=== PATIENT | male | born 1955 | race Caucasian/White ===

== ENCOUNTER 2017-07-31 12:11 | Emergency (ER) | payer MEDICARE, MEDICAID ==
[~2017-07-31] VITALS: Ht 167.6 cm; Wt 80.0 kg
[~2017-07-31 12:11] MED LIST: DSS100 PO; LISI-661 PO; METF500T4 PO; OLAN10TA3 PO; OMEP20 PO; RISP3TAB44 PO
[2017-07-31] MEDS ORDERED: ASPI-556 PO (12:21)
[2017-07-31] MEDS ORDERED: FERR-89 PO (12:21)
[2017-07-31] MEDS ORDERED: ESCI10TA PO (12:21)
[2017-07-31] MEDS ORDERED: ALEN70TA48 PO (12:21)
[2017-07-31] MEDS ORDERED: PALI234D IM (12:21)
[2017-07-31] MEDS ORDERED: OXCA300T PO (12:21)
[2017-07-31] MEDS ORDERED: ATOR40TA28 PO (12:21)
[2017-07-31] MEDS ORDERED: METO50 PO (12:21)
[2017-07-31] MEDS ORDERED: OLAN5TAB2 PO (12:21)
[2017-07-31] MEDS ORDERED: HALO5 PO (12:21)
[2017-07-31] MEDS ORDERED: TRIH2TAB3 PO (12:21)
[2017-07-31 12:23] LABS: GLUCOSE,POINT OF CARE 111 MG/DL (70-110)
[2017-07-31 12:55] LABS: BASOPHILS # (AUTO) 0.04 K/uL (0.00-0.20); BASOPHILS % (AUTO) 0.4 % (0.0-2.0); EOSINOPHILS # (AUTO) 0.08 K/uL (0.00-0.70); EOSINOPHILS % (AUTO) 0.73 % (1.0-6.0); HEMATOCRIT 45.2 % (41-53); HEMOGLOBIN 15.1 g/dL (13.5-17.5); LYMPHOCYTES % (AUTO) 17.5 % (22.0-44.0); MEAN CORPUSCULAR HEMOGLOBIN 30.2 pg (26.0-34.0); MEAN CORPUSCULAR HGB CONC 33.4 G/dL (31.0-37.0); MEAN CORPUSCULAR VOLUME 90 fL (80-100); MONOCYTES # (AUTO) 0.7 K/uL (0.1-1.0); MONOCYTES % (AUTO) 6.5 % (2.0-9.0); NEUTROPHILS # (AUTO) 8.4 K/uL (1.8-7.7); NEUTROPHILS % (AUTO) 74.9 % (40.0-70.0); PLATELET COUNT (AUTO) 341 K/uL (150-450); RED BLOOD CELL COUNT(AUTO) 5.01 MIL/uL (4.50-5.90); RED CELL DISTRIBUTION WIDTH 16.1 % (11.5-14.5); WHITE BLOOD COUNT (AUTO) 11.2 K/uL (4.5-11.0)
[2017-07-31 13:04] LABS: ANION GAP 12 mmol/L (8-16); CALCIUM, TOTAL 9.8 mg/dL (8.8-10.5); CARBON DIOXIDE 25 mmol/L (22-29); CHLORIDE 104 mmol/L (98-107); CREATININE 1.04 mg/dL (0.60-1.30); GLOMERULAR FILTR. RATE CALC > 60 mL/min (>60); POTASSIUM 3.9 mmol/L (3.5-5.1); SODIUM SERUM 141 mmol/L (136-145); UREA NITROGEN, BLOOD 14 mg/dL (7-18)
[2017-07-31 13:09] LABS: ALANINE AMINOTRANSFERASE 11 U/L (12-78); ALBUMIN 4.1 g/dL (3.4-5.0); ASPARTATE AMINOTRANSFERASE 13 U/L (15-37); BILIRUBIN,TOTAL 0.5 mg/dL (0.1-1.0); TOTAL PROTEIN, SERUM 8.3 g/dL (6.4-8.2)
[2017-07-31 15:30] VITALS: BP 127/84
== END 2017-07-31 15:35 | disposition home or self-care (01) ==
LOC: EMS 12:12
DX: F20.0 Paranoid schizophrenia (principal); F32.9 Major depressive disorder, single episode, unspecified; E11.9 Type 2 diabetes mellitus without complications; I10 Essential (primary) hypertension; F17.200 Nicotine dependence, unspecified, uncomplicated; Z88.8 Allergy status to other drugs, medicaments and biological substances
CPT/HCPCS: 36415; 80053; 80307; 82962; 85025; 99284; 99406; G0480

== ENCOUNTER 2017-11-20 13:24 | Emergency (ER) | payer MEDICARE, MEDICAID ==
[~2017-11-20] VITALS: Ht 167.6 cm; Wt 80.0 kg
[~2017-11-20 13:24] MED LIST changes: +ALEN70TA48 PO; +ASPI-556 PO; +ATOR40TA28 PO; +ESCI10TA PO; +FERR-89 PO; +HALO5 PO; +METO50 PO; +OLAN5TAB2 PO; +OXCA300T PO; +PALI234D IM; +TRIH2TAB3 PO
[2017-11-20 13:36] LABS: GLUCOSE,POINT OF CARE 119 MG/DL (70-110)
[2017-11-20 13:45] LABS: APPEARANCE,URINE CLOUDY (CLEAR); GLUCOSE, URINE (UA) NEGATIVE (NEGATIVE); KETONES,URINE NEGATIVE (NEGATIVE); LEUKOCYTE ESTERASE ,URINE SMALL (NEGATIVE); OCCULT BLOOD,URINE LARGE (NEGATIVE); PH,URINE 5.5 (5.0-8.0); PROTEIN,URINE NEGATIVE (NEGATIVE)
[2017-11-20 13:54] LABS: ADD UA MICROSCOPIC YES; RBC,URINE 51-100 /HPF (0-2)
[2017-11-20 13:55] LABS: SQUAMOUS EPITHELIAL CELL,UR Few /LPF (None Seen)
[2017-11-20] MEDS ORDERED: IBUPROFEN 800 MG TABLET PO ONE (14:45)
[2017-11-20] MEDS ORDERED: CefTRIAXone SODIUM 1 GM/VIAL IM ONE (14:45)
[2017-11-20] MEDS ORDERED: AZITHROMYCIN 250 MG TABLET PO ONE (14:45)
[2017-11-20] MEDS ORDERED: LIDOCAINE HCL 1% 10 ML VIAL INJ ONE (15:00)
[2017-11-20 15:18] VITALS: BP 132/81
[2017-11-24 03:06] LABS: GC DNA N.A. AMPLIFY Negative (Negative)
== END 2017-11-20 15:24 | disposition home or self-care (01) ==
LOC: EMS 13:29
DX: N39.0 Urinary tract infection, site not specified (principal); A64 Unspecified sexually transmitted disease; I10 Essential (primary) hypertension; F20.9 Schizophrenia, unspecified; E11.9 Type 2 diabetes mellitus without complications; Z88.8 Allergy status to other drugs, medicaments and biological substances; Z79.82 Long term (current) use of aspirin; Z79.4 Long term (current) use of insulin; Z79.899 Other long term (current) drug therapy
CPT/HCPCS: 81001; 82962; 87086; 87491; 87591; 96372; 99284; J0696; J3490

== ENCOUNTER 2017-12-02 09:51 | Emergency (ER) | payer MEDICARE, MEDICAID ==
[~2017-12-02] VITALS: Ht 167.6 cm; Wt 79.5 kg
[2017-12-02 10:02] LABS: GLUCOSE,POINT OF CARE 111 MG/DL (70-110)
[2017-12-02 12:23] VITALS: BP 174/96
[2017-12-02 14:20] LABS: APPEARANCE,URINE CLEAR (CLEAR); BILIRUBIN,URINE NEGATIVE (NEGATIVE); GLUCOSE, URINE (UA) NEGATIVE (NEGATIVE); KETONES,URINE NEGATIVE (NEGATIVE); LEUKOCYTE ESTERASE ,URINE TRACE (NEGATIVE); NITRATE,URINE NEGATIVE (NEGATIVE); OCCULT BLOOD,URINE TRACE (NEGATIVE); PH,URINE 6.5 (5.0-8.0); PROTEIN,URINE NEGATIVE (NEGATIVE); UROBILINOGEN,URINE 0.2 mg/dL (<=1.0)
[2017-12-02 14:28] LABS: BACTERIA,URINE None Seen /HPF (None Seen); RBC,URINE 0-2 /HPF (0-2); WBC,URINE 0-2 /HPF (0-5)
== END 2017-12-02 13:24 | disposition home or self-care (01) ==
LOC: EMS 09:53
DX: R30.0 Dysuria (principal); I10 Essential (primary) hypertension; E11.9 Type 2 diabetes mellitus without complications; Z88.8 Allergy status to other drugs, medicaments and biological substances
CPT/HCPCS: 82962; 99283

== ENCOUNTER 2018-02-01 10:10 | Inpatient (IN) | payer MEDICARE, MEDICAID ==
[~2018-02-01] VITALS: Ht 167.6 cm; Wt 75.7 kg
[2018-02-01 10:36] LABS: APPEARANCE,URINE CLEAR (CLEAR); BILIRUBIN,URINE NEGATIVE (NEGATIVE); GLUCOSE, URINE (UA) NEGATIVE (NEGATIVE); KETONES,URINE NEGATIVE (NEGATIVE); LEUKOCYTE ESTERASE ,URINE NEGATIVE (NEGATIVE); NITRATE,URINE NEGATIVE (NEGATIVE); PROTEIN,URINE NEGATIVE (NEGATIVE); UROBILINOGEN,URINE 0.2 mg/dL (<=1.0)
[2018-02-01 10:41] LABS: AMPHET/METH SCREEN,URINE NEGATIVE (NEGATIVE); BARBITURATE SCREEN, URINE NEGATIVE (NEGATIVE); BENZODIAZEPINES SCREEN,URINE NEGATIVE (NEGATIVE); CANNABINOID SCREEN,URINE NEGATIVE (NEGATIVE); COCAINE SCREEN,URINE NEGATIVE (NEGATIVE); METHADONE SCREEN, URINE NEGATIVE (NEGATIVE); OPIATE SCREEN,URINE NEGATIVE (NEGATIVE)
[2018-02-01 10:47] LABS: PHENCYCLIDINE SCREEN,URINE NEGATIVE (NEGATIVE)
[2018-02-01 11:01] LABS: BASOPHILS % (AUTO) 0.9 % (0.0-2.0); EOSINOPHILS % (AUTO) 3.6 % (1.0-6.0); HEMATOCRIT 44.4 % (41-53); HEMOGLOBIN 14.8 g/dL (13.5-17.5); LYMPHOCYTES # (AUTO) 2.9 K/uL (1.0-4.8); LYMPHOCYTES % (AUTO) 21.9 % (22.0-44.0); MEAN CORPUSCULAR HEMOGLOBIN 29.4 pg (26.0-34.0); MEAN CORPUSCULAR HGB CONC 33.4 G/dL (31.0-37.0); MEAN CORPUSCULAR VOLUME 88 fL (80-100); MONOCYTES # (AUTO) 1.1 K/uL (0.1-1.0); NEUTROPHILS # (AUTO) 8.7 K/uL (1.8-7.7); NEUTROPHILS % (AUTO) 65.6 % (40.0-70.0); PLATELET COUNT (AUTO) 351 K/uL (150-450); RED BLOOD CELL COUNT(AUTO) 5.04 MIL/uL (4.50-5.90); RED CELL DISTRIBUTION WIDTH 16.3 % (11.5-14.5)
[2018-02-01 11:02] LABS: OCCULT BLOOD,URINE NEGATIVE (NEGATIVE)
[2018-02-01] MEDS ORDERED: LORazepam 2 MG/ML VIAL IM ONE (11:30)
[2018-02-01] MEDS ORDERED: DiphenhydrAMINE HCL 50 MG/ML VIAL IM ONE (11:30)
[2018-02-01] MEDS ORDERED: HALOPERIDOL LACTATE 5 MG/ML VIAL IM ONE (11:30)
[2018-02-01 11:43] LABS: ANION GAP 13 mmol/L (8-16); CALCIUM, TOTAL 9.3 mg/dL (8.8-10.5); CARBON DIOXIDE 23 mmol/L (22-29); CHLORIDE 102 mmol/L (98-107); CREATININE 0.91 mg/dL (0.60-1.30); GLOMERULAR FILTR. RATE CALC > 60 mL/min (>60); GLUCOSE,RANDOM 108 mg/dL (70-110); POTASSIUM 4.1 mmol/L (3.5-5.1); SODIUM SERUM 138 mmol/L (136-145); UREA NITROGEN, BLOOD 12 mg/dL (7-18)
[2018-02-01] MEDS ORDERED: HALOPERIDOL 5 MG TABLET PO PRN (11:45)
[2018-02-01 11:57] LABS: ALANINE AMINOTRANSFERASE 20 U/L (12-78); ALBUMIN 3.9 g/dL (3.4-5.0); ALKALINE PHOSPHATASE 86 U/L (46-116); ASPARTATE AMINOTRANSFERASE 20 U/L (15-37); BILIRUBIN,TOTAL 0.6 mg/dL (0.1-1.0); THYROID STIMULATING HORMONE 1.18 uIU/mL (0.36-3.74); TOTAL PROTEIN, SERUM 8.3 g/dL (6.4-8.2)
[2018-02-01] MEDS: OXcarbazepine 300 MG TABLET PO SCH (17:00)
[2018-02-01] MEDS: RisperiDONE 3 MG TABLET PO SCH (17:00)
[2018-02-01] MEDS: HALOPERIDOL 5 MG TABLET PO SCH (17:00)
[2018-02-01] MEDS: TRIHEXYPHENIDYL HCL 2 MG TABLET PO SCH (17:00)
[2018-02-01 17:44] VITALS: BP 113/67
[2018-02-01] MEDS ORDERED: INFLUENZA VIRUS VACCINE QVS 2017-18 (3YR+)/PF 60 MCG/0.5 ML SYRINGE IM ONE (18:00)
[2018-02-01] MEDS: OLANZapine 10 MG RAPDIS TABLET PO SCH (21:00)
[2018-02-02 06:52] VITALS: BP 111/63
[2018-02-02] MEDS: TRIHEXYPHENIDYL HCL 2 MG TABLET PO SCH ×2 (09:00→16:10)
[2018-02-02] MEDS: HALOPERIDOL 5 MG TABLET PO SCH ×3 (09:00→16:10)
[2018-02-02 09:10] VITALS: BP 118/62
[2018-02-02] MEDS: OXcarbazepine 300 MG TABLET PO SCH ×2 (09:23→16:10)
[2018-02-02] MEDS: ESCITALOPRAM OXALATE 10 MG TABLET PO SCH (09:23)
[2018-02-02] MEDS: RisperiDONE 3 MG TABLET PO SCH ×2 (09:23→16:10)
[2018-02-02] MEDS ORDERED: PETROLATUM,WHITE 71 GM JELLY TP PRN (10:30)
[2018-02-02] MEDS ORDERED: MAG HYDROX/AL HYDROX/SIMETH ES 30 ML SUSPENSION UDCUP PO PRN (10:30)
[2018-02-02] MEDS ORDERED: BACITRACIN 28.4 GM OINTMENT TP PRN (10:30)
[2018-02-02] MEDS ORDERED: ONDANSETRON HCL 4 MG TABLET PO PRN (10:30)
[2018-02-02] MEDS ORDERED: BENZOCAINE/MENTHOL LOZENGE MM PRN (10:30)
[2018-02-02] MEDS ORDERED: ALBUTEROL SULFATE HFA 90 MCG/PUFF 8 GM INHALER IH PRN (10:30)
[2018-02-02] MEDS ORDERED: IBUPROFEN 600 MG TABLET PO PRN (10:30)
[2018-02-02] MEDS ORDERED: MAGNESIUM HYDROXIDE SUSPENSION 30 ML UDCUP PO PRN (10:30)
[2018-02-02] MEDS ORDERED: CloNIDine HCL 0.1 MG TABLET PO PRN (10:30)
[2018-02-02] MEDS ORDERED: LOPERAMIDE HCL 2 MG CAPSULE PO PRN (10:30)
[2018-02-02] MEDS: LORazepam 2 MG TABLET PO PRN (16:11)
[2018-02-02 16:35] VITALS: BP 133/65
[2018-02-02] MEDS: ATORVASTATIN CALCIUM 40 MG TABLET PO SCH (20:06)
[2018-02-02] MEDS: ZOLPIDEM TARTRATE 10 MG TABLET PO PRN (20:07)
[2018-02-02] MEDS: OLANZapine 10 MG RAPDIS TABLET PO SCH (20:07)
[2018-02-03 06:52] VITALS: BP 126/66
[2018-02-03 08:15] VITALS: BP 108/56
[2018-02-03 08:35] LABS: BASOPHILS % (AUTO) 0.3 % (0.0-2.0); EOSINOPHILS % (AUTO) 3.4 % (1.0-6.0); HEMOGLOBIN 13.8 g/dL (13.5-17.5); LYMPHOCYTES # (AUTO) 3.3 K/uL (1.0-4.8); LYMPHOCYTES % (AUTO) 23.7 % (22.0-44.0); MEAN CORPUSCULAR HGB CONC 32.9 G/dL (31.0-37.0); MEAN CORPUSCULAR VOLUME 88 fL (80-100); MONOCYTES # (AUTO) 1.1 K/uL (0.1-1.0); MONOCYTES % (AUTO) 8.1 % (2.0-9.0); NEUTROPHILS % (AUTO) 64.5 % (40.0-70.0); PLATELET COUNT (AUTO) 350 K/uL (150-450); RED BLOOD CELL COUNT(AUTO) 4.76 MIL/uL (4.50-5.90); RED CELL DISTRIBUTION WIDTH 16.2 % (11.5-14.5)
[2018-02-03] MEDS: TRIHEXYPHENIDYL HCL 2 MG TABLET PO SCH ×2 (09:00→16:34)
[2018-02-03] MEDS: HALOPERIDOL 5 MG TABLET PO SCH ×3 (09:00→16:34)
[2018-02-03] MEDS: ASPIRIN 81 MG EC TABLET PO SCH (09:11)
[2018-02-03] MEDS: RisperiDONE 3 MG TABLET PO SCH ×2 (09:11→16:34)
[2018-02-03] MEDS: DOCUSATE SODIUM 100 MG CAPSULE PO SCH (09:11)
[2018-02-03] MEDS: LISINOPRIL 10 MG TABLET PO SCH (09:12)
[2018-02-03] MEDS: OMEPRAZOLE 20 MG CAPSULE PO SCH (09:12)
[2018-02-03] MEDS: ESCITALOPRAM OXALATE 10 MG TABLET PO SCH (09:12)
[2018-02-03] MEDS: OXcarbazepine 300 MG TABLET PO SCH ×2 (09:12→16:34)
[2018-02-03] MEDS ORDERED: HALOPERIDOL LACTATE 5 MG/ML VIAL IM PRN (15:00)
[2018-02-03 16:00] VITALS: BP 113/89
[2018-02-03] MEDS: OLANZapine 10 MG RAPDIS TABLET PO SCH (20:46)
[2018-02-03] MEDS: ATORVASTATIN CALCIUM 40 MG TABLET PO SCH (20:46)
[2018-02-03] MEDS: ZOLPIDEM TARTRATE 10 MG TABLET PO PRN (20:47)
[2018-02-03] MEDS ORDERED: GLUCAGON,HUMAN RECOMBINANT 1 MG VIAL IM PRN (21:45)
[2018-02-04] MEDS: MetFORMIN HCL 500 MG TABLET PO SCH ×2 (06:29→16:27)
[2018-02-04 06:44] LABS: GLUCOMETER DEV NAME(LOC) BV3N5; GLUCOSE,POINT OF CARE 99 MG/DL (70-110)
[2018-02-04 07:06] VITALS: BP 112/63
[2018-02-04 08:08] LABS: BASOPHILS % (AUTO) 0.4 % (0.0-2.0); HEMATOCRIT 41.4 % (41-53); HEMOGLOBIN 13.7 g/dL (13.5-17.5); LYMPHOCYTES # (AUTO) 3.5 K/uL (1.0-4.8); LYMPHOCYTES % (AUTO) 31.3 % (22.0-44.0); MEAN CORPUSCULAR HGB CONC 33.1 G/dL (31.0-37.0); MEAN CORPUSCULAR VOLUME 88 fL (80-100); MONOCYTES # (AUTO) 0.9 K/uL (0.1-1.0); MONOCYTES % (AUTO) 8.2 % (2.0-9.0); NEUTROPHILS # (AUTO) 6.2 K/uL (1.8-7.7); NEUTROPHILS % (AUTO) 56.1 % (40.0-70.0); PLATELET COUNT (AUTO) 361 K/uL (150-450); RED BLOOD CELL COUNT(AUTO) 4.71 MIL/uL (4.50-5.90); RED CELL DISTRIBUTION WIDTH 16.1 % (11.5-14.5)
[2018-02-04 08:25] VITALS: BP 128/68
[2018-02-04 08:29] LABS: ANION GAP 11 mmol/L (8-16); CALCIUM, TOTAL 9.4 mg/dL (8.8-10.5); CARBON DIOXIDE 26 mmol/L (22-29); CHLORIDE 103 mmol/L (98-107); CREATININE 1.02 mg/dL (0.60-1.30); GLOMERULAR FILTR. RATE CALC > 60 mL/min (>60); GLUCOSE,RANDOM 104 mg/dL (70-110); PHOSPHORUS 3.7 mg/dL (2.5-4.9); POTASSIUM 4.8 mmol/L (3.5-5.1); SODIUM SERUM 140 mmol/L (136-145); UREA NITROGEN, BLOOD 20 mg/dL (7-18)
[2018-02-04] MEDS: ASPIRIN 81 MG EC TABLET PO SCH (09:08)
[2018-02-04] MEDS: LISINOPRIL 10 MG TABLET PO SCH (09:08)
[2018-02-04] MEDS: OMEPRAZOLE 20 MG CAPSULE PO SCH (09:08)
[2018-02-04] MEDS: TRIHEXYPHENIDYL HCL 2 MG TABLET PO SCH ×2 (09:08→16:27)
[2018-02-04] MEDS: HALOPERIDOL 5 MG TABLET PO SCH ×3 (09:08→16:27)
[2018-02-04] MEDS: ESCITALOPRAM OXALATE 10 MG TABLET PO SCH (09:08)
[2018-02-04] MEDS: RisperiDONE 3 MG TABLET PO SCH ×2 (09:08→16:27)
[2018-02-04] MEDS: DOCUSATE SODIUM 100 MG CAPSULE PO SCH (09:08)
[2018-02-04] MEDS: OXcarbazepine 300 MG TABLET PO SCH ×2 (09:08→16:27)
[2018-02-04 09:13] LABS: HIV 1-2 SCREEN 4TH GEN W/RFLX Non Reactive (Non Reactive)
[2018-02-04 16:11] VITALS: BP 133/65
[2018-02-04 16:21] LABS: GLUCOMETER DEV NAME(LOC) BV3N5; GLUCOSE,POINT OF CARE 115 MG/DL (70-110)
[2018-02-04] MEDS: LORazepam 2 MG TABLET PO PRN (16:27)
[2018-02-04 17:18] LABS: GLUCOMETER DEV NAME(LOC) BV3N5; GLUCOSE,POINT OF CARE 106 MG/DL (70-110)
[2018-02-04] MEDS: ZOLPIDEM TARTRATE 10 MG TABLET PO PRN (20:51)
[2018-02-04] MEDS: OLANZapine 10 MG RAPDIS TABLET PO SCH (20:51)
[2018-02-04] MEDS: ATORVASTATIN CALCIUM 40 MG TABLET PO SCH (20:51)
[2018-02-05 01:02] VITALS: BP 127/71
[2018-02-05] MEDS: MetFORMIN HCL 500 MG TABLET PO SCH ×2 (06:46→16:40)
[2018-02-05 06:47] LABS: GLUCOMETER DEV NAME(LOC) BV3N5; GLUCOSE,POINT OF CARE 110 MG/DL (70-110)
[2018-02-05 08:00] VITALS: BP 108/64
[2018-02-05] MEDS: TRIHEXYPHENIDYL HCL 2 MG TABLET PO SCH ×2 (08:51→16:40)
[2018-02-05] MEDS: RisperiDONE 3 MG TABLET PO SCH ×2 (08:51→16:40)
[2018-02-05] MEDS: OXcarbazepine 300 MG TABLET PO SCH ×2 (08:51→16:40)
[2018-02-05] MEDS: LISINOPRIL 10 MG TABLET PO SCH (08:51)
[2018-02-05] MEDS: ESCITALOPRAM OXALATE 10 MG TABLET PO SCH (08:52)
[2018-02-05] MEDS: OMEPRAZOLE 20 MG CAPSULE PO SCH (08:52)
[2018-02-05] MEDS: ASPIRIN 81 MG EC TABLET PO SCH (08:52)
[2018-02-05] MEDS: DOCUSATE SODIUM 100 MG CAPSULE PO SCH (08:52)
[2018-02-05] MEDS: HALOPERIDOL 5 MG TABLET PO SCH ×3 (08:52→16:41)
[2018-02-05] MEDS: CHOLECALCIFEROL (VIT D3) 1,000 UNITS TABLET PO SCH (10:21)
[2018-02-05 11:32] LABS: GLUCOMETER DEV NAME(LOC) BV3N5; GLUCOSE,POINT OF CARE 150 MG/DL (70-110)
[2018-02-05 16:00] VITALS: BP 134/73
[2018-02-05] MEDS: LORazepam 2 MG TABLET PO PRN (16:41)
[2018-02-05 16:47] LABS: GLUCOMETER DEV NAME(LOC) BV3N5; GLUCOSE,POINT OF CARE 126 MG/DL (70-110)
[2018-02-05] MEDS: ATORVASTATIN CALCIUM 40 MG TABLET PO SCH (20:43)
[2018-02-05] MEDS: OLANZapine 10 MG RAPDIS TABLET PO SCH (20:43)
[2018-02-05] MEDS: ZOLPIDEM TARTRATE 10 MG TABLET PO PRN (20:43)
[2018-02-06] MEDS: INSULIN ASPART 100 UNITS/ML SQ PRN ×2 (06:26→16:39)
[2018-02-06] MEDS: MetFORMIN HCL 500 MG TABLET PO SCH ×2 (06:27→16:38)
[2018-02-06 06:33] LABS: GLUCOMETER DEV NAME(LOC) BV3N5; GLUCOSE,POINT OF CARE 168 MG/DL (70-110)
[2018-02-06 06:45] VITALS: BP 128/70
[2018-02-06 08:12] VITALS: BP 131/80
[2018-02-06] MEDS: LISINOPRIL 10 MG TABLET PO SCH (10:05)
[2018-02-06] MEDS: HALOPERIDOL 5 MG TABLET PO SCH ×3 (10:05→16:39)
[2018-02-06] MEDS: DOCUSATE SODIUM 100 MG CAPSULE PO SCH (10:05)
[2018-02-06] MEDS: OXcarbazepine 300 MG TABLET PO SCH ×2 (10:05→16:38)
[2018-02-06] MEDS: ASPIRIN 81 MG EC TABLET PO SCH (10:05)
[2018-02-06] MEDS: OMEPRAZOLE 20 MG CAPSULE PO SCH (10:05)
[2018-02-06] MEDS: ESCITALOPRAM OXALATE 10 MG TABLET PO SCH (10:05)
[2018-02-06] MEDS: RisperiDONE 3 MG TABLET PO SCH ×2 (10:05→16:39)
[2018-02-06] MEDS: CHOLECALCIFEROL (VIT D3) 1,000 UNITS TABLET PO SCH (10:14)
[2018-02-06] MEDS: TRIHEXYPHENIDYL HCL 2 MG TABLET PO SCH ×2 (10:14→16:38)
[2018-02-06 11:48] LABS: GLUCOMETER DEV NAME(LOC) BV3N5; GLUCOSE,POINT OF CARE 95 MG/DL (70-110)
[2018-02-06 16:00] VITALS: BP 138/75
[2018-02-06] MEDS: LORazepam 2 MG TABLET PO PRN ×2 (16:39→20:44)
[2018-02-06 16:57] LABS: GLUCOMETER DEV NAME(LOC) BV3N5; GLUCOSE,POINT OF CARE 191 MG/DL (70-110)
[2018-02-06] MEDS ORDERED: METF850T2 PO (17:43)
[2018-02-06] MEDS: ATORVASTATIN CALCIUM 40 MG TABLET PO SCH (20:44)
[2018-02-06] MEDS: HALOPERIDOL 10 MG TABLET PO SCH (20:44)
[2018-02-06] MEDS: ZOLPIDEM TARTRATE 10 MG TABLET PO PRN (20:44)
[2018-02-07 06:23] LABS: GLUCOMETER DEV NAME(LOC) BV3N5; GLUCOSE,POINT OF CARE 122 MG/DL (70-110)
[2018-02-07] MEDS: MetFORMIN HCL 500 MG TABLET PO SCH ×2 (06:31→16:28)
[2018-02-07 07:04] VITALS: BP 124/75
[2018-02-07 08:11] VITALS: BP 110/68
[2018-02-07 09:48] VITALS: BP 124/71
[2018-02-07] MEDS: TRIHEXYPHENIDYL HCL 2 MG TABLET PO SCH ×2 (09:52→16:28)
[2018-02-07] MEDS: CHOLECALCIFEROL (VIT D3) 1,000 UNITS TABLET PO SCH (09:52)
[2018-02-07] MEDS: OXcarbazepine 300 MG TABLET PO SCH ×2 (09:52→16:28)
[2018-02-07] MEDS: OMEPRAZOLE 20 MG CAPSULE PO SCH (09:52)
[2018-02-07] MEDS: ASPIRIN 81 MG EC TABLET PO SCH (09:52)
[2018-02-07] MEDS: LISINOPRIL 10 MG TABLET PO SCH (09:52)
[2018-02-07] MEDS: ESCITALOPRAM OXALATE 10 MG TABLET PO SCH (09:52)
[2018-02-07] MEDS: DOCUSATE SODIUM 100 MG CAPSULE PO SCH (09:53)
[2018-02-07 12:12] LABS: GLUCOMETER DEV NAME(LOC) BV3N5; GLUCOSE,POINT OF CARE 98 MG/DL (70-110)
[2018-02-07 16:25] VITALS: BP 107/67
[2018-02-07 16:33] LABS: GLUCOMETER DEV NAME(LOC) BV3N5; GLUCOSE,POINT OF CARE 93 MG/DL (70-110)
[2018-02-07 20:07] LABS: GLUCOMETER DEV NAME(LOC) BV3N5; GLUCOSE,POINT OF CARE 136 MG/DL (70-110)
[2018-02-07] MEDS: ZOLPIDEM TARTRATE 10 MG TABLET PO PRN (20:15)
[2018-02-07] MEDS: HALOPERIDOL 10 MG TABLET PO SCH (20:15)
[2018-02-07] MEDS: ATORVASTATIN CALCIUM 40 MG TABLET PO SCH (20:15)
[2018-02-08 06:38] VITALS: BP 109/65
[2018-02-08] MEDS: MetFORMIN HCL 500 MG TABLET PO SCH ×2 (06:48→16:36)
[2018-02-08 08:00] VITALS: BP 136/74
[2018-02-08] MEDS: CHOLECALCIFEROL (VIT D3) 1,000 UNITS TABLET PO SCH (09:00)
[2018-02-08] MEDS: ASPIRIN 81 MG EC TABLET PO SCH (09:00)
[2018-02-08] MEDS: LISINOPRIL 10 MG TABLET PO SCH (09:00)
[2018-02-08] MEDS: OXcarbazepine 300 MG TABLET PO SCH ×2 (09:00→16:36)
[2018-02-08] MEDS: ESCITALOPRAM OXALATE 10 MG TABLET PO SCH (09:00)
[2018-02-08] MEDS: OMEPRAZOLE 20 MG CAPSULE PO SCH (09:00)
[2018-02-08] MEDS: TRIHEXYPHENIDYL HCL 2 MG TABLET PO SCH ×2 (09:00→16:36)
[2018-02-08] MEDS: DOCUSATE SODIUM 100 MG CAPSULE PO SCH (09:00)
[2018-02-08 12:58] LABS: GLUCOMETER DEV NAME(LOC) BV3N5; GLUCOSE,POINT OF CARE 105 MG/DL (70-110)
[2018-02-08 12:58] LABS: GLUCOMETER DEV NAME(LOC) BV3N5; GLUCOSE,POINT OF CARE 146 MG/DL (70-110)
[2018-02-08] MEDS: INSULIN ASPART 100 UNITS/ML SQ PRN (14:28)
[2018-02-08 16:00] VITALS: BP 145/83
[2018-02-08] MEDS: LORazepam 2 MG TABLET PO PRN ×2 (16:36→20:37)
[2018-02-08 16:47] LABS: GLUCOMETER DEV NAME(LOC) BV3N5; GLUCOSE,POINT OF CARE 102 MG/DL (70-110)
[2018-02-08] MEDS: HALOPERIDOL 10 MG TABLET PO SCH (20:37)
[2018-02-08] MEDS: ZOLPIDEM TARTRATE 10 MG TABLET PO PRN (20:37)
[2018-02-08] MEDS: ATORVASTATIN CALCIUM 40 MG TABLET PO SCH (20:37)
[2018-02-09 05:36] VITALS: BP 132/81
[2018-02-09 05:43] VITALS: BP 147/84
[2018-02-09 05:43] LABS: GLUCOMETER DEV NAME(LOC) BV3N5; GLUCOSE,POINT OF CARE 110 MG/DL (70-110)
[2018-02-09] MEDS: ACETAMINOPHEN 325 MG TABLET PO PRN (05:45)
[2018-02-09] MEDS: MetFORMIN HCL 500 MG TABLET PO SCH ×2 (06:36→16:34)
[2018-02-09 08:12] VITALS: BP 138/84
[2018-02-09] MEDS: ESCITALOPRAM OXALATE 10 MG TABLET PO SCH (08:26)
[2018-02-09] MEDS: LISINOPRIL 10 MG TABLET PO SCH (08:26)
[2018-02-09] MEDS: OMEPRAZOLE 20 MG CAPSULE PO SCH (08:27)
[2018-02-09] MEDS: CHOLECALCIFEROL (VIT D3) 1,000 UNITS TABLET PO SCH (08:27)
[2018-02-09] MEDS: TRIHEXYPHENIDYL HCL 2 MG TABLET PO SCH ×2 (08:27→16:34)
[2018-02-09] MEDS: DOCUSATE SODIUM 100 MG CAPSULE PO SCH (08:27)
[2018-02-09] MEDS: ASPIRIN 81 MG EC TABLET PO SCH (08:27)
[2018-02-09] MEDS: OXcarbazepine 300 MG TABLET PO SCH ×2 (08:27→16:34)
[2018-02-09] MEDS: INSULIN ASPART 100 UNITS/ML SQ PRN (11:49)
[2018-02-09 11:52] LABS: GLUCOMETER DEV NAME(LOC) BV3N5; GLUCOSE,POINT OF CARE 187 MG/DL (70-110)
[2018-02-09 16:00] VITALS: BP 146/83
[2018-02-09] MEDS: LORazepam 2 MG TABLET PO PRN (16:34)
[2018-02-09 16:52] LABS: GLUCOMETER DEV NAME(LOC) BV3N5; GLUCOSE,POINT OF CARE 118 MG/DL (70-110)
[2018-02-09] MEDS: HALOPERIDOL 10 MG TABLET PO SCH (20:47)
[2018-02-09] MEDS: ATORVASTATIN CALCIUM 40 MG TABLET PO SCH (20:47)
[2018-02-09] MEDS: ZOLPIDEM TARTRATE 10 MG TABLET PO PRN (20:47)
[2018-02-09 20:52] LABS: GLUCOMETER DEV NAME(LOC) BV3N5; GLUCOSE,POINT OF CARE 107 MG/DL (70-110)
[2018-02-10] MEDS: MetFORMIN HCL 500 MG TABLET PO SCH ×2 (06:40→16:21)
[2018-02-10 06:48] LABS: GLUCOMETER DEV NAME(LOC) BV3N5; GLUCOSE,POINT OF CARE 98 MG/DL (70-110)
[2018-02-10 06:50] VITALS: BP 134/79
[2018-02-10 08:07] VITALS: BP 126/77
[2018-02-10] MEDS: CHOLECALCIFEROL (VIT D3) 1,000 UNITS TABLET PO SCH (08:19)
[2018-02-10] MEDS: DOCUSATE SODIUM 100 MG CAPSULE PO SCH (08:19)
[2018-02-10] MEDS: ESCITALOPRAM OXALATE 10 MG TABLET PO SCH (08:20)
[2018-02-10] MEDS: OXcarbazepine 300 MG TABLET PO SCH ×2 (08:20→16:21)
[2018-02-10] MEDS: OMEPRAZOLE 20 MG CAPSULE PO SCH (08:20)
[2018-02-10] MEDS: ASPIRIN 81 MG EC TABLET PO SCH (08:20)
[2018-02-10] MEDS: TRIHEXYPHENIDYL HCL 2 MG TABLET PO SCH ×2 (08:20→16:22)
[2018-02-10] MEDS: LISINOPRIL 10 MG TABLET PO SCH (08:20)
[2018-02-10 11:52] LABS: GLUCOMETER DEV NAME(LOC) BV3N5; GLUCOSE,POINT OF CARE 114 MG/DL (70-110)
[2018-02-10 16:00] VITALS: BP 148/67
[2018-02-10] MEDS: LORazepam 2 MG TABLET PO PRN (16:22)
[2018-02-10 16:57] LABS: GLUCOMETER DEV NAME(LOC) BV3N5; GLUCOSE,POINT OF CARE 92 MG/DL (70-110)
[2018-02-10] MEDS: HALOPERIDOL 10 MG TABLET PO SCH (20:45)
[2018-02-10] MEDS: ATORVASTATIN CALCIUM 40 MG TABLET PO SCH (20:45)
[2018-02-10 20:56] LABS: GLUCOMETER DEV NAME(LOC) BV3N5; GLUCOSE,POINT OF CARE 98 MG/DL (70-110)
[2018-02-10] MEDS ORDERED: PALIPERIDONE PALMITATE 234 MG/1.5 ML SYRINGE IM SCH (21:00)
[2018-02-11] MEDS: MetFORMIN HCL 500 MG TABLET PO SCH ×2 (06:34→16:30)
[2018-02-11 06:37] VITALS: BP 112/81
[2018-02-11 06:38] LABS: GLUCOMETER DEV NAME(LOC) BV3N5; GLUCOSE,POINT OF CARE 114 MG/DL (70-110)
[2018-02-11 08:00] VITALS: BP 138/75
[2018-02-11] MEDS: DOCUSATE SODIUM 100 MG CAPSULE PO SCH (08:25)
[2018-02-11] MEDS: OMEPRAZOLE 20 MG CAPSULE PO SCH (08:25)
[2018-02-11] MEDS: ESCITALOPRAM OXALATE 10 MG TABLET PO SCH (08:25)
[2018-02-11] MEDS: CHOLECALCIFEROL (VIT D3) 1,000 UNITS TABLET PO SCH (08:26)
[2018-02-11] MEDS: LISINOPRIL 10 MG TABLET PO SCH (08:26)
[2018-02-11] MEDS: TRIHEXYPHENIDYL HCL 2 MG TABLET PO SCH ×2 (08:26→16:29)
[2018-02-11] MEDS: ASPIRIN 81 MG EC TABLET PO SCH (08:26)
[2018-02-11] MEDS: OXcarbazepine 300 MG TABLET PO SCH ×2 (08:26→16:30)
[2018-02-11 11:32] LABS: GLUCOMETER DEV NAME(LOC) BV3N5; GLUCOSE,POINT OF CARE 128 MG/DL (70-110)
[2018-02-11 13:26] VITALS: BP 132/60
[2018-02-11 14:33] VITALS: BP 128/64
[2018-02-11] MEDS: LORazepam 2 MG TABLET PO PRN (16:30)
[2018-02-11 16:35] VITALS: BP 108/65
[2018-02-11 16:37] LABS: GLUCOMETER DEV NAME(LOC) BV3N5; GLUCOSE,POINT OF CARE 97 MG/DL (70-110)
[2018-02-11] MEDS: HALOPERIDOL 10 MG TABLET PO SCH (20:36)
[2018-02-11] MEDS: ZOLPIDEM TARTRATE 10 MG TABLET PO PRN (20:36)
[2018-02-11] MEDS: ATORVASTATIN CALCIUM 40 MG TABLET PO SCH (20:36)
[2018-02-11 20:42] LABS: GLUCOMETER DEV NAME(LOC) BV3N5; GLUCOSE,POINT OF CARE 103 MG/DL (70-110)
[2018-02-12 06:33] LABS: GLUCOMETER DEV NAME(LOC) BV3N5; GLUCOSE,POINT OF CARE 134 MG/DL (70-110)
[2018-02-12] MEDS: MetFORMIN HCL 500 MG TABLET PO SCH ×2 (06:33→16:48)
[2018-02-12 06:43] VITALS: BP 102/61
[2018-02-12] MEDS: LISINOPRIL 10 MG TABLET PO SCH (08:20)
[2018-02-12] MEDS: DOCUSATE SODIUM 100 MG CAPSULE PO SCH (08:20)
[2018-02-12] MEDS: OMEPRAZOLE 20 MG CAPSULE PO SCH (08:20)
[2018-02-12] MEDS: ESCITALOPRAM OXALATE 10 MG TABLET PO SCH (08:20)
[2018-02-12] MEDS: CHOLECALCIFEROL (VIT D3) 1,000 UNITS TABLET PO SCH (08:20)
[2018-02-12] MEDS: ASPIRIN 81 MG EC TABLET PO SCH (08:20)
[2018-02-12] MEDS: OXcarbazepine 300 MG TABLET PO SCH ×2 (08:20→16:48)
[2018-02-12] MEDS: TRIHEXYPHENIDYL HCL 2 MG TABLET PO SCH ×2 (08:20→16:48)
[2018-02-12 08:27] VITALS: BP 134/65
[2018-02-12] MEDS ORDERED: BACITRACIN 28.4 GM OINTMENT TP PRN (11:15)
[2018-02-12 11:48] LABS: GLUCOMETER DEV NAME(LOC) BV3N5; GLUCOSE,POINT OF CARE 80 MG/DL (70-110)
[2018-02-12 16:32] LABS: GLUCOMETER DEV NAME(LOC) BV3N5; GLUCOSE,POINT OF CARE 131 MG/DL (70-110)
[2018-02-12 16:34] VITALS: BP 156/90
[2018-02-12] MEDS: LORazepam 2 MG TABLET PO PRN (16:57)
[2018-02-12 18:00] VITALS: BP 132/75
[2018-02-12 20:52] LABS: GLUCOMETER DEV NAME(LOC) BV3N5; GLUCOSE,POINT OF CARE 160 MG/DL (70-110)
[2018-02-12] MEDS: HALOPERIDOL 10 MG TABLET PO SCH (20:53)
[2018-02-12] MEDS: ACETAMINOPHEN 325 MG TABLET PO PRN (20:53)
[2018-02-12] MEDS: ATORVASTATIN CALCIUM 40 MG TABLET PO SCH (20:53)
[2018-02-13] MEDS: MetFORMIN HCL 500 MG TABLET PO SCH (06:20)
[2018-02-13 06:23] LABS: GLUCOMETER DEV NAME(LOC) BV3N5; GLUCOSE,POINT OF CARE 106 MG/DL (70-110)
[2018-02-13 06:40] VITALS: BP 107/61
[2018-02-13] MEDS: ESCITALOPRAM OXALATE 10 MG TABLET PO SCH (08:00)
[2018-02-13] MEDS: OMEPRAZOLE 20 MG CAPSULE PO SCH (08:00)
[2018-02-13] MEDS: ASPIRIN 81 MG EC TABLET PO SCH (08:00)
[2018-02-13] MEDS: TRIHEXYPHENIDYL HCL 2 MG TABLET PO SCH (08:00)
[2018-02-13] MEDS: LISINOPRIL 10 MG TABLET PO SCH (08:00)
[2018-02-13] MEDS: CHOLECALCIFEROL (VIT D3) 1,000 UNITS TABLET PO SCH (08:00)
[2018-02-13] MEDS: LORazepam 2 MG TABLET PO PRN (08:00)
[2018-02-13] MEDS: DOCUSATE SODIUM 100 MG CAPSULE PO SCH (08:01)
[2018-02-13] MEDS: OXcarbazepine 300 MG TABLET PO SCH (08:01)
[2018-02-13 08:51] VITALS: BP 141/82
[2018-02-13 15:17] LABS: GLUCOMETER DEV NAME(LOC) BV3N5; GLUCOSE,POINT OF CARE 152 MG/DL (70-110)
[2018-02-13] MEDS ORDERED: HALO10 PO (15:36)
[2018-02-13] MEDS ORDERED: TRIH2TAB3 PO (15:41)
[2018-02-13] MEDS ORDERED: OMEP20 PO (15:43)
[2018-02-13] MEDS ORDERED: METF500T4 PO (15:44)
[2018-02-13] MEDS ORDERED: ATOR40TA28 PO (15:45)
[2018-02-13] MEDS ORDERED: DSS100 PO (15:45)
[2018-02-13] MEDS ORDERED: CIPR-278 PO (15:47)
[2018-02-22] MEDS ORDERED: PALIPERIDONE PALMITATE 234 MG/1.5 ML SYRINGE IM SCH (09:00)
== END 2018-02-13 17:49 | disposition home or self-care (01) | DRG 885 ==
LOC: EMS 10:14 → EEVIPCON 10:14 → B3A 15:05
PROVIDERS: ADMIT Psychiatry & Neurology Psychiatry; ATTEND Psychiatry & Neurology Psychiatry
DX: F20.0 Paranoid schizophrenia (principal); E11.9 Type 2 diabetes mellitus without complications; K76.0 Fatty (change of) liver, not elsewhere classified; F17.210 Nicotine dependence, cigarettes, uncomplicated; G47.00 Insomnia, unspecified; I10 Essential (primary) hypertension; J44.9 Chronic obstructive pulmonary disease, unspecified; K21.9 Gastro-esophageal reflux disease without esophagitis; Z71.6 Tobacco abuse counseling; M19.90 Unspecified osteoarthritis, unspecified site; Z91.14 Patient's other noncompliance with medication regimen; Z88.8 Allergy status to other drugs, medicaments and biological substances; Z79.899 Other long term (current) drug therapy
CPT/HCPCS: 76700; 80074; 82306; 82962; 83036; 83735; 84100; 84153; 84443; 86592; 87389; 87491; 87591; 96372; 99285; 99406; G0480; J1200; J1630; J2060

== ENCOUNTER 2018-03-30 11:09 | Inpatient (IN) | payer MEDICARE, MEDICAID ==
[~2018-03-30] VITALS: Ht 167.6 cm; Wt 74.4 kg
[~2018-03-30 11:09] MED LIST changes: -ALEN70TA48 PO; +CIPR-278 PO; -ESCI10TA PO; -FERR-89 PO; +HALO10 PO; -HALO5 PO; -METF500T4 PO; +METF500T6 PO; -METO50 PO; -OLAN10TA3 PO; -OLAN5TAB2 PO; -RISP3TAB44 PO
[2018-03-30 11:25] VITALS: BP 150/78
[2018-03-30] MEDS ORDERED: HALOPERIDOL 5 MG TABLET PO PRN (11:45)
[2018-03-30 13:53] LABS: GLUCOMETER DEV NAME(LOC) BV3N5; GLUCOSE,POINT OF CARE 97 MG/DL (70-110)
[2018-03-30] MEDS ORDERED: PNEUMOCOCCAL VACCINE POLYVALENT 0.5 ML VIAL [PPSV23] IM ONE (14:15)
[2018-03-30] MEDS: LORazepam 2 MG TABLET PO PRN (16:46)
[2018-03-30 16:48] VITALS: BP 127/81
[2018-03-30] MEDS: HALOPERIDOL 10 MG TABLET PO SCH (20:28)
[2018-03-30] MEDS: ZOLPIDEM TARTRATE 10 MG TABLET PO PRN (20:28)
[2018-03-31 06:31] VITALS: BP 105/62
[2018-03-31] MEDS ORDERED: INSULIN LISPRO 100 UNITS/ML SQ PRN (07:45)
[2018-03-31] MEDS ORDERED: GLUCAGON,HUMAN RECOMBINANT 1 MG VIAL IM PRN (07:45)
[2018-03-31] MEDS: TRIHEXYPHENIDYL HCL 2 MG TABLET PO SCH ×2 (08:07→17:02)
[2018-03-31 08:15] VITALS: BP 141/79
[2018-03-31] MEDS ORDERED: LOPERAMIDE HCL 2 MG CAPSULE PO PRN (11:15)
[2018-03-31] MEDS ORDERED: CloNIDine HCL 0.1 MG TABLET PO PRN (11:15)
[2018-03-31] MEDS ORDERED: ONDANSETRON HCL 4 MG TABLET PO PRN (11:15)
[2018-03-31] MEDS ORDERED: ALBUTEROL SULFATE HFA 90 MCG/PUFF 8 GM INHALER IH PRN (11:15)
[2018-03-31] MEDS ORDERED: PETROLATUM,WHITE 71 GM JELLY TP PRN (11:15)
[2018-03-31] MEDS ORDERED: MAGNESIUM HYDROXIDE SUSPENSION 30 ML UDCUP PO PRN (11:15)
[2018-03-31] MEDS ORDERED: BENZOCAINE/MENTHOL LOZENGE MM PRN (11:15)
[2018-03-31] MEDS ORDERED: IBUPROFEN 600 MG TABLET PO PRN (11:15)
[2018-03-31] MEDS ORDERED: BACITRACIN 28.4 GM OINTMENT TP PRN (11:15)
[2018-03-31] MEDS ORDERED: MAG HYDROX/AL HYDROX/SIMETH ES 30 ML SUSPENSION UDCUP PO PRN (11:15)
[2018-03-31 16:21] VITALS: BP 135/81
[2018-03-31] MEDS: MetFORMIN HCL 500 MG TABLET PO SCH (17:00)
[2018-03-31] MEDS: LORazepam 2 MG TABLET PO PRN (17:01)
[2018-03-31] MEDS: ATORVASTATIN CALCIUM 40 MG TABLET PO SCH (20:23)
[2018-03-31] MEDS: HALOPERIDOL 10 MG TABLET PO SCH (20:24)
[2018-04-01] MEDS: MetFORMIN HCL 500 MG TABLET PO SCH ×2 (06:28→16:18)
[2018-04-01 06:32] LABS: GLUCOMETER DEV NAME(LOC) BV3N5; GLUCOSE,POINT OF CARE 106 MG/DL (70-110)
[2018-04-01 06:41] VITALS: BP 110/68
[2018-04-01 07:33] LABS: BASOPHILS % (AUTO) 0.5 % (0.0-2.0); HEMATOCRIT 39.7 % (41-53); HEMOGLOBIN 13.4 g/dL (13.5-17.5); LYMPHOCYTES # (AUTO) 3.3 K/uL (1.0-4.8); LYMPHOCYTES % (AUTO) 30.9 % (22.0-44.0); MEAN CORPUSCULAR HEMOGLOBIN 29.6 pg (26.0-34.0); MEAN CORPUSCULAR HGB CONC 33.7 G/dL (31.0-37.0); MEAN CORPUSCULAR VOLUME 88 fL (80-100); MONOCYTES % (AUTO) 9.9 % (2.0-9.0); NEUTROPHILS # (AUTO) 5.8 K/uL (1.8-7.7); NEUTROPHILS % (AUTO) 54.7 % (40.0-70.0); PLATELET COUNT (AUTO) 336 K/uL (150-450); RED BLOOD CELL COUNT(AUTO) 4.52 MIL/uL (4.50-5.90)
[2018-04-01 07:54] LABS: HEMOGLOBIN A1C 5.9 % (4.5-6.2)
[2018-04-01 08:05] LABS: ALANINE AMINOTRANSFERASE 23 U/L (12-78); ALBUMIN 3.3 g/dL (3.4-5.0); ALKALINE PHOSPHATASE 81 U/L (46-116); ANION GAP 9 mmol/L (8-16); ASPARTATE AMINOTRANSFERASE 26 U/L (15-37); BILIRUBIN,TOTAL 0.3 mg/dL (0.1-1.0); CALCIUM, TOTAL 9.1 mg/dL (8.8-10.5); CARBON DIOXIDE 26 mmol/L (22-29); CHLORIDE 105 mmol/L (98-107); CHOL/HDL RATIO 2.2 (4.2-7.3); CHOLESTEROL 94 mg/dL (131-200); CREATININE 0.92 mg/dL (0.60-1.30); FREE T4 (FREE THYROXINE) 1.17 ng/dL (0.76-1.46); GLOMERULAR FILTR. RATE CALC > 60 mL/min (>60); GLUCOSE,RANDOM 93 mg/dL (70-110); HDL CHOLESTEROL 42 mg/dL (40-60); LDL CHOL (CALC.) 40 mg/dL (0-130); POTASSIUM 4.7 mmol/L (3.5-5.1); SODIUM SERUM 140 mmol/L (136-145); THYROID STIMULATING HORMONE 0.77 uIU/mL (0.36-3.74); TOTAL PROTEIN, SERUM 6.7 g/dL (6.4-8.2); TRIGLYCERIDES 62 mg/dL (15-150); UREA NITROGEN, BLOOD 13 mg/dL (7-18)
[2018-04-01 08:24] VITALS: BP 132/80
[2018-04-01] MEDS: LORazepam 2 MG TABLET PO PRN ×2 (08:57→16:19)
[2018-04-01] MEDS: LISINOPRIL 10 MG TABLET PO SCH (08:57)
[2018-04-01] MEDS: TRIHEXYPHENIDYL HCL 2 MG TABLET PO SCH ×2 (08:57→16:19)
[2018-04-01] MEDS: ASPIRIN 81 MG EC TABLET PO SCH (08:57)
[2018-04-01 12:17] LABS: GLUCOMETER DEV NAME(LOC) BV3N5; GLUCOSE,POINT OF CARE 88 MG/DL (70-110)
[2018-04-01 16:11] VITALS: BP 113/63
[2018-04-01 17:26] LABS: GLUCOMETER DEV NAME(LOC) BV3N5; GLUCOSE,POINT OF CARE 104 MG/DL (70-110)
[2018-04-01] MEDS: HALOPERIDOL 10 MG TABLET PO SCH (20:25)
[2018-04-01] MEDS: ATORVASTATIN CALCIUM 40 MG TABLET PO SCH (20:25)
[2018-04-02 04:56] VITALS: BP 135/70
[2018-04-02 06:28] LABS: GLUCOMETER DEV NAME(LOC) BV3N5; GLUCOSE,POINT OF CARE 135 MG/DL (70-110)
[2018-04-02] MEDS: MetFORMIN HCL 500 MG TABLET PO SCH ×2 (06:29→16:13)
[2018-04-02 08:16] VITALS: BP 128/64
[2018-04-02] MEDS: LISINOPRIL 10 MG TABLET PO SCH (08:37)
[2018-04-02] MEDS: TRIHEXYPHENIDYL HCL 2 MG TABLET PO SCH ×2 (08:37→16:13)
[2018-04-02] MEDS: LORazepam 2 MG TABLET PO PRN ×2 (08:37→16:13)
[2018-04-02] MEDS: ASPIRIN 81 MG EC TABLET PO SCH (08:38)
[2018-04-02 16:31] VITALS: BP 127/67
[2018-04-02] MEDS: HALOPERIDOL 10 MG TABLET PO SCH (20:18)
[2018-04-02] MEDS: ATORVASTATIN CALCIUM 40 MG TABLET PO SCH (20:18)
[2018-04-03 06:19] VITALS: BP 118/74
[2018-04-03] MEDS: MetFORMIN HCL 500 MG TABLET PO SCH ×2 (06:32→17:20)
[2018-04-03] MEDS: TRIHEXYPHENIDYL HCL 2 MG TABLET PO SCH ×2 (08:00→17:20)
[2018-04-03] MEDS: LISINOPRIL 10 MG TABLET PO SCH (08:00)
[2018-04-03] MEDS: ASPIRIN 81 MG EC TABLET PO SCH (08:00)
[2018-04-03 08:20] VITALS: BP 133/68
[2018-04-03 16:35] VITALS: BP 138/70
[2018-04-03 16:39] VITALS: BP 125/71
[2018-04-03] MEDS: ACETAMINOPHEN 325 MG TABLET PO PRN ×2 (16:39→21:00)
[2018-04-03] MEDS: ZOLPIDEM TARTRATE 10 MG TABLET PO PRN (20:24)
[2018-04-03] MEDS: LORazepam 2 MG TABLET PO PRN (20:57)
[2018-04-03 21:00] VITALS: BP 122/68
[2018-04-03] MEDS: ATORVASTATIN CALCIUM 40 MG TABLET PO SCH (21:49)
[2018-04-03] MEDS: HALOPERIDOL 10 MG TABLET PO SCH (21:49)
[2018-04-04] MEDS: MetFORMIN HCL 500 MG TABLET PO SCH ×2 (06:18→16:42)
[2018-04-04 06:33] VITALS: BP 128/69
[2018-04-04 08:00] VITALS: BP 120/72
[2018-04-04] MEDS: LISINOPRIL 10 MG TABLET PO SCH (08:08)
[2018-04-04] MEDS: TRIHEXYPHENIDYL HCL 2 MG TABLET PO SCH ×2 (08:08→16:42)
[2018-04-04] MEDS: ASPIRIN 81 MG EC TABLET PO SCH (08:09)
[2018-04-04 16:05] VITALS: BP 118/69
[2018-04-04 16:17] LABS: GLUCOMETER DEV NAME(LOC) BV3N5; GLUCOSE,POINT OF CARE 102 MG/DL (70-110)
[2018-04-04] MEDS: LORazepam 2 MG TABLET PO PRN (16:42)
[2018-04-04 20:49] LABS: GLUCOMETER DEV NAME(LOC) BV3N5; GLUCOSE,POINT OF CARE 103 MG/DL (70-110)
[2018-04-04] MEDS: ATORVASTATIN CALCIUM 40 MG TABLET PO SCH (20:59)
[2018-04-04] MEDS: HALOPERIDOL 10 MG TABLET PO SCH (20:59)
[2018-04-05 00:05] VITALS: BP 140/82
[2018-04-05] MEDS: ACETAMINOPHEN 325 MG TABLET PO PRN (00:09)
[2018-04-05] MEDS: MetFORMIN HCL 500 MG TABLET PO SCH ×2 (06:40→16:36)
[2018-04-05 08:11] VITALS: BP 115/68
[2018-04-05] MEDS: LISINOPRIL 10 MG TABLET PO SCH (08:57)
[2018-04-05] MEDS: ASPIRIN 81 MG EC TABLET PO SCH (08:57)
[2018-04-05] MEDS: TRIHEXYPHENIDYL HCL 2 MG TABLET PO SCH ×2 (08:57→16:37)
[2018-04-05 15:17] LABS: GLUCOMETER DEV NAME(LOC) BV3N5; GLUCOSE,POINT OF CARE 106 MG/DL (70-110)
[2018-04-05] MEDS: LORazepam 2 MG TABLET PO PRN (16:37)
[2018-04-05 16:42] LABS: GLUCOMETER DEV NAME(LOC) BV3N5; GLUCOSE,POINT OF CARE 95 MG/DL (70-110)
[2018-04-05 16:44] VITALS: BP 113/67
[2018-04-05] MEDS: ATORVASTATIN CALCIUM 40 MG TABLET PO SCH (20:53)
[2018-04-05] MEDS: HALOPERIDOL 10 MG TABLET PO SCH (20:53)
[2018-04-06 05:45] VITALS: BP 114/71
[2018-04-06 06:27] LABS: GLUCOMETER DEV NAME(LOC) BV3N5; GLUCOSE,POINT OF CARE 105 MG/DL (70-110)
[2018-04-06] MEDS: MetFORMIN HCL 500 MG TABLET PO SCH ×2 (07:29→16:15)
[2018-04-06 08:27] VITALS: BP 114/65
[2018-04-06] MEDS: LISINOPRIL 10 MG TABLET PO SCH (08:35)
[2018-04-06] MEDS: TRIHEXYPHENIDYL HCL 2 MG TABLET PO SCH ×2 (08:35→16:15)
[2018-04-06] MEDS: ASPIRIN 81 MG EC TABLET PO SCH (08:36)
[2018-04-06] MEDS ORDERED: PALIPERIDONE PALMITATE 234 MG/1.5 ML SYRINGE IM SCH (09:00)
[2018-04-06 11:37] LABS: GLUCOMETER DEV NAME(LOC) BV3N5; GLUCOSE,POINT OF CARE 117 MG/DL (70-110)
[2018-04-06] MEDS: LORazepam 2 MG TABLET PO PRN (16:15)
[2018-04-06 16:20] VITALS: BP 138/78
[2018-04-06] MEDS: HALOPERIDOL 10 MG TABLET PO SCH (20:07)
[2018-04-06] MEDS: ZOLPIDEM TARTRATE 10 MG TABLET PO PRN (20:15)
[2018-04-06] MEDS: ATORVASTATIN CALCIUM 40 MG TABLET PO SCH (20:15)
[2018-04-07 05:41] VITALS: BP 132/72
[2018-04-07] MEDS: MetFORMIN HCL 500 MG TABLET PO SCH ×2 (06:22→16:23)
[2018-04-07] MEDS: LORazepam 2 MG TABLET PO PRN ×2 (07:53→16:23)
[2018-04-07] MEDS: ASPIRIN 81 MG EC TABLET PO SCH (08:13)
[2018-04-07] MEDS: TRIHEXYPHENIDYL HCL 2 MG TABLET PO SCH ×2 (08:13→16:23)
[2018-04-07] MEDS: LISINOPRIL 10 MG TABLET PO SCH (08:13)
[2018-04-07 08:15] VITALS: BP 128/76
[2018-04-07 16:00] VITALS: BP 110/66
[2018-04-07] MEDS: ZOLPIDEM TARTRATE 10 MG TABLET PO PRN (20:47)
[2018-04-07] MEDS: ATORVASTATIN CALCIUM 40 MG TABLET PO SCH (20:47)
[2018-04-07] MEDS: HALOPERIDOL 10 MG TABLET PO SCH (20:47)
[2018-04-08 05:20] VITALS: BP 115/72
[2018-04-08] MEDS: MetFORMIN HCL 500 MG TABLET PO SCH ×2 (06:19→17:11)
[2018-04-08] MEDS: LISINOPRIL 10 MG TABLET PO SCH (08:09)
[2018-04-08] MEDS: TRIHEXYPHENIDYL HCL 2 MG TABLET PO SCH ×2 (08:09→17:12)
[2018-04-08] MEDS: ASPIRIN 81 MG EC TABLET PO SCH (08:09)
[2018-04-08 08:27] VITALS: BP 121/74
[2018-04-08 16:05] VITALS: BP 124/74
[2018-04-08] MEDS: LORazepam 2 MG TABLET PO PRN (17:12)
[2018-04-08] MEDS: HALOPERIDOL 10 MG TABLET PO SCH (20:48)
[2018-04-08] MEDS: ATORVASTATIN CALCIUM 40 MG TABLET PO SCH (20:48)
[2018-04-09] MEDS: MetFORMIN HCL 500 MG TABLET PO SCH ×2 (06:47→17:29)
[2018-04-09 06:54] VITALS: BP 117/68
[2018-04-09] MEDS: LISINOPRIL 10 MG TABLET PO SCH (08:01)
[2018-04-09] MEDS: LORazepam 2 MG TABLET PO PRN ×2 (08:01→17:29)
[2018-04-09] MEDS: ASPIRIN 81 MG EC TABLET PO SCH (08:01)
[2018-04-09] MEDS: TRIHEXYPHENIDYL HCL 2 MG TABLET PO SCH ×2 (08:03→17:29)
[2018-04-09 08:53] VITALS: BP 100/62
[2018-04-09 16:40] VITALS: BP 107/61
[2018-04-09] MEDS: ATORVASTATIN CALCIUM 40 MG TABLET PO SCH (20:46)
[2018-04-09] MEDS: HALOPERIDOL 10 MG TABLET PO SCH (20:47)
[2018-04-10 03:52] VITALS: BP 121/72
[2018-04-10] MEDS: MetFORMIN HCL 500 MG TABLET PO SCH (06:17)
[2018-04-10 08:14] VITALS: BP 148/73
[2018-04-10] MEDS: ASPIRIN 81 MG EC TABLET PO SCH (08:39)
[2018-04-10] MEDS: LISINOPRIL 10 MG TABLET PO SCH (08:39)
[2018-04-10] MEDS: TRIHEXYPHENIDYL HCL 2 MG TABLET PO SCH (08:39)
== END 2018-04-10 10:30 | disposition home or self-care (01) | DRG 885 ==
LOC: B3A 11:44
PROVIDERS: ADMIT Psychiatry & Neurology Psychiatry; ATTEND Psychiatry & Neurology Psychiatry
DX: F25.9 Schizoaffective disorder, unspecified (principal); E11.9 Type 2 diabetes mellitus without complications; E55.9 Vitamin D deficiency, unspecified; F17.200 Nicotine dependence, unspecified, uncomplicated; F41.9 Anxiety disorder, unspecified; G47.00 Insomnia, unspecified; I10 Essential (primary) hypertension; J44.9 Chronic obstructive pulmonary disease, unspecified; K21.9 Gastro-esophageal reflux disease without esophagitis; M19.90 Unspecified osteoarthritis, unspecified site; Z88.8 Allergy status to other drugs, medicaments and biological substances
CPT/HCPCS: 83036; 84439; 84443

== ENCOUNTER 2020-10-30 01:41 | Emergency (ER) | payer MEDICARE, MEDICAID ==
[~2020-10-30] VITALS: Ht 167.6 cm; Wt 82.5 kg
[~2020-10-30 01:41] MED LIST changes: -CIPR-278 PO; -DSS100 PO; +METF-960 PO; -METF500T6 PO; -OMEP20 PO; -OXCA300T PO
[2020-10-30] MEDS ORDERED: SPIR50 PO (04:52)
[2020-10-30] MEDS ORDERED: DAPA10TA PO (04:52)
[2020-10-30] MEDS ORDERED: CLOZ100T32 PO (04:52)
[2020-10-30] MEDS ORDERED: OLAN10TA3 PO (04:52)
[2020-10-30] MEDS ORDERED: PALI234D IM (04:52)
[2020-10-30] MEDS ORDERED: AMLO-257 PO (04:52)
[2020-10-30] MEDS ORDERED: SERT50TA12 PO (04:52)
[2020-10-30] MEDS ORDERED: RISP1SOL11 PO (04:52)
[2020-10-30 05:14] LABS: GLUCOSE,POINT OF CARE 119 MG/DL (70-110)
[2020-10-30 05:30] LABS: AMPHET/METH SCREEN,URINE NEGATIVE (NEGATIVE); BARBITURATE SCREEN, URINE NEGATIVE (NEGATIVE); BENZODIAZEPINES SCREEN,URINE NEGATIVE (NEGATIVE); CANNABINOID SCREEN,URINE NEGATIVE (NEGATIVE); COCAINE SCREEN,URINE NEGATIVE (NEGATIVE); METHADONE SCREEN, URINE NEGATIVE (NEGATIVE); OPIATE SCREEN,URINE NEGATIVE (NEGATIVE)
[2020-10-30 05:31] LABS: PHENCYCLIDINE SCREEN,URINE NEGATIVE (NEGATIVE)
[2020-10-30 10:00] VITALS: BP 149/93
== END 2020-10-30 10:20 | disposition home or self-care (01) ==
LOC: EMS 01:42
DX: F20.9 Schizophrenia, unspecified (principal); F32.9 Major depressive disorder, single episode, unspecified; E11.9 Type 2 diabetes mellitus without complications; K21.9 Gastro-esophageal reflux disease without esophagitis; I10 Essential (primary) hypertension; Z88.8 Allergy status to other drugs, medicaments and biological substances; Z79.84 Long term (current) use of oral hypoglycemic drugs; Z79.899 Other long term (current) drug therapy; Z79.82 Long term (current) use of aspirin

== ENCOUNTER 2021-02-07 09:58 | Emergency (ER) | payer MEDICARE, MEDICAID ==
[~2021-02-07] VITALS: Ht 165.1 cm; Wt 75.0 kg
[~2021-02-07 09:58] MED LIST changes: +AMLO-257 PO; +CLOZ100T32 PO; +DAPA10TA PO; -LISI-661 PO; +LISI-893 PO; +OLAN10TA3 PO; +RISP1SOL11 PO; +SERT-158 PO; +SPIR50 PO
[2021-02-07 10:00] VITALS: BP 164/86
[2021-02-07 10:47] LABS: GLUCOSE,POINT OF CARE 111 MG/DL (70-110)
== END 2021-02-07 10:51 | disposition home or self-care (01) ==
LOC: EMS 09:58
DX: F20.9 Schizophrenia, unspecified (principal); F32.9 Major depressive disorder, single episode, unspecified; E11.9 Type 2 diabetes mellitus without complications; K21.9 Gastro-esophageal reflux disease without esophagitis; I10 Essential (primary) hypertension; Z88.8 Allergy status to other drugs, medicaments and biological substances; Z79.84 Long term (current) use of oral hypoglycemic drugs; Z79.82 Long term (current) use of aspirin; Z79.899 Other long term (current) drug therapy
CPT/HCPCS: 82948; 99282